=== PATIENT | male | born 2000 | race Caucasian/White ===

== ENCOUNTER 2023-09-19 09:58 | Emergency (ER) | payer SELFPAY ==
[2023-09-19 10:00] VITALS: BP 137/93
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
[2023-09-19] MEDS: AUGMENTIN 875 MG/125 MG 1 TABLET PO (10:48)
== END 2023-09-19 10:59 | disposition home or self-care (01) ==
LOC: EMR 09:58
PROVIDERS: EMERGENCY PHYSICIAN Emergency Medicine
DX: S51.052A Open bite, left elbow, initial encounter (principal); W54.0XXA Bitten by dog, initial encounter
CPT/HCPCS: 99283